=== PATIENT | female | born 1990 | race Native Hawaiian/Other Pacific Islander ===

== ENCOUNTER 2017-01-24 16:00 | Observation (INO) | payer BC ==
[~2017-01-24] VITALS: Ht 162.6 cm; Wt 71.2 kg
[2017-01-24 17:13] VITALS: BP 137/91; TEMP 97.9; Ht 162.6 cm; Wt 71.2 kg
[2017-01-24 18:37] LABS: PLATELET COUNT 281 K/uL (152-353)
[2017-01-24 18:55] LABS: POTASSIUM 4.1 mmol/L (3.6-5.2); SODIUM 132 mmol/L (136-145)
[2017-01-24 20:00] VITALS: BP 122/65; TEMP 98.2
[2017-01-25] VITALS: BP 101/63; TEMP 98.7
[2017-01-25 04:00] VITALS: BP 122/58; TEMP 97.9
[2017-01-25 05:22] LABS: PLATELET COUNT 247 K/uL (152-353)
[2017-01-25 05:45] LABS: POTASSIUM 3.6 mmol/L (3.6-5.2); SODIUM 136 mmol/L (136-145)
[2017-01-25 08:00] VITALS: BP 131/82; TEMP 97.9
[2017-01-25] MEDS ORDERED: ALLEGRA-D 2424 HOUR PO (11:00)
[2017-01-25 12:00] VITALS: BP 97/61; TEMP 98.3
[2017-01-25 16:00] VITALS: BP 126/59; TEMP 98
[2017-01-25 20:00] VITALS: BP 129/84; TEMP 98.1
[2017-01-26 00:05] VITALS: BP 128/61; TEMP 98
[2017-01-26 05:16] LABS: PLATELET COUNT 225 K/uL (152-353)
[2017-01-26 05:30] LABS: POTASSIUM 3.7 mmol/L (3.6-5.2); SODIUM 138 mmol/L (136-145)
[2017-01-26 05:51] VITALS: BP 112/66; TEMP 98.3
== END 2017-01-26 14:15 | disposition home or self-care (01) ==
LOC: MED/SURG 16:00
PROVIDERS: Emergency Medicine; ADMIT Internal Medicine
DX: J02.0 Streptococcal pharyngitis (principal); D72.828 Other elevated white blood cell count; J06.9 Acute upper respiratory infection, unspecified; B34.9 Viral infection, unspecified; R53.1 Weakness; R11.2 Nausea with vomiting, unspecified
CPT/HCPCS: 36415; 80048; 80053; 81000; 83735; 84702; 85027; 85651; 86060; 86140; 87040; 87077; 87086; 87088; 87186; 94640; 94664; 94760; 96365; 96366; 96367; 99220; G0378; G0379; J3490

== ENCOUNTER 2018-12-13 15:17 | Emergency (ER) | payer OTHER ==
[~2018-12-13] VITALS: Ht 162.6 cm; Wt 72.6 kg
[~2018-12-13 15:17] MED LIST: ALLEGRA-D 2424 HOUR PO
[2018-12-13 16:45] VITALS: BP 119/75; TEMP 98.4
== END 2018-12-13 16:45 | disposition home or self-care (01) ==
LOC: ED 15:17
DX: J06.9 Acute upper respiratory infection, unspecified (principal)
CPT/HCPCS: 87502; 87651; 99283

== ENCOUNTER 2021-04-23 10:24 | Emergency (ER) | payer OTHER ==
[~2021-04-23] VITALS: Ht 162.6 cm; Wt 72.6 kg
[2021-04-23 11:17] LABS: PLATELET COUNT 122 K/uL (152-353)
[2021-04-23 11:23] LABS: POTASSIUM 4.5 mmol/L (3.6-5.2); SODIUM 139 mmol/L (136-145)
[2021-04-23 11:32] LABS: PARTIAL THROMBOPLASTIN TIME 18.1 SECONDS (24.5-33.6)
[2021-04-23 13:24] VITALS: BP 127/80; TEMP 98.4
== END 2021-04-23 13:24 | disposition home or self-care (01) ==
LOC: ED 10:24
PROVIDERS: Family Medicine
DX: R10.84 Generalized abdominal pain (principal); R10.13 Epigastric pain; J32.8 Other chronic sinusitis; M79.18 Myalgia, other site; Z79.2 Long term (current) use of antibiotics; F17.290 Nicotine dependence, other tobacco product, uncomplicated
CPT/HCPCS: 36415; 80053; 81000; 81025; 82550; 84484; 85027; 85379; 85610; 85730; 93005; 96365; 96375; 99284; J0696; J1885